=== PATIENT | male | born 1970 | race Caucasian/White ===

== ENCOUNTER 2017-05-04 08:57 | Emergency (ER) | payer OTHER ==
[~2017-05-04] VITALS: Ht 190.5 cm; Wt 82.0 kg
[~2017-05-04 08:57] MED LIST: HYDR-3498 PO
[2017-05-04 08:59] VITALS: Ht 190.5 cm; Wt 82.0 kg
--- NOTE | 2017-05-04 10:19 | RADRPT ---
PROCEDURE: Right foot series. CLINICAL INDICATION: Right foot pain TECHNIQUE: Three views of the right foot are available for review. COMPARISON: None available FINDINGS: There is normal mineralization and alignment of the bones of the right foot. There is a minimally d isplaced fracture of the first proximal phalanx. No other fractures are identified. Joint spaces a re grossly well maintained The soft tissues are unremarkable. Incidental note is made of distal fib ular hardware. IMPRESSION: 1. Minimally displaced fracture proximal phalanx fracture. 2. Otherwise unremarkable right foot series. RPTAT: KK .Tod Singletary MD, MD Date Time Electronically viewed and signed by .Tod Singletary MD, on 05/04/2017 10:18 .B/
[2017-05-04] MEDS ORDERED: IBUP-1542 PO (11:18)
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
== END 2017-05-04 12:09 | disposition home or self-care (01) ==
LOC: FTE 08:57
DX: S90.111A Contusion of right great toe without damage to nail, initial encounter (principal); F17.210 Nicotine dependence, cigarettes, uncomplicated; W50.0XXA Accidental hit or strike by another person, initial encounter; Y92.9 Unspecified place or not applicable
CPT/HCPCS: 73630; Z7502

== ENCOUNTER 2018-05-30 15:08 | Emergency (ER) | END 2018-05-30 16:38 | disposition home or self-care (01) ==